=== PATIENT | female | born 1955 | race Caucasian/White ===

== ENCOUNTER 2016-08-29 23:07 | Emergency (ER) | payer OTHER ==
[2016-08-30] MEDS ORDERED: Ondansetron INJ* 2 MG/ML VIAL IV ONE ×2 (01:29→06:32)
[2016-08-30] MEDS ORDERED: NS 0.9% 1000 ML* 1,000 ML IV ONE ×3 (01:29→08:15)
--- NOTE | 2016-08-30 01:32 | ED ---
Jordi Valencia Billy, scribed for Rell Nieves MD on 08/30/16 at 0132 . GI/ HPI - HPI Summary HPI Summary: Patient is a 60 y/o female coming to [facility] for evaluation of abdominal pain and increased ostomy output today. Pain severity 4/10. Patient also reports an episode of emesis today at 2100. Patient also describes generalized weakness. Nothing makes her symptoms better or worse. She states that she had extensive abdominal surgery approximately 6 weeks ago at [facility]. - History of Current Complaint Chief Complaint: EDAbdPain Time Seen by Provider: 08/30/16 01:25 Stated Complaint: VOMITING/DEHYRATION Hx Obtained From: Patient Onset/Duration: Started Hours Ago, Still Present Timing: Constant Severity: Moderate Current Severity: Moderate Pain Intensity: 4 Location of Pain: Diffuse Associated Signs and Symptoms: Positive: Weakness, Nausea, Vomiting, Other: - increased ostomy output - Allergy/Home Medications Allergies/Adverse Reactions: Allergies Allergy/AdvReac Type Severity Reaction Status Date / Time Bupropion [From Wellbutrin] Allergy Mild Palpitation Verified 08/29/16 23:16 s Morphine Allergy Vomiting Verified 08/29/16 23:16 Codeine AdvReac Intermediate GI Upset Verified 08/29/16 23:16 Mesalamine [From Pentasa] AdvReac Intermediate Nausea And Verified 08/29/16 23: 16 Vomiting PMH/Surg Hx/FS Hx/Imm Hx Endocrine/Hematology History: Denies: Hx Anticoagulant Therapy, Hx Diabetes, Hx Thyroid Disease Cardiovascular History: Reports: Hx Angina Denies: Hx Congestive Heart Failure, Hx Hypertension, Hx Pacemaker/ICD Respiratory History: Denies: Hx Asthma, Hx Chronic Obstructive Pulmonary Disease (COPD) GI History: Reports: Hx Gastroesophageal Reflux Disease, Hx Hiatal Hernia, Other GI Disorders - ULCERATIVE COLITIS 9 MO AGO Denies: Hx Ulcer History: Denies: Hx Renal Disease Musculoskeletal History: Reports: Hx Arthritis, Hx Back Problems, Hx Orthopedic Injury - Numerous HX of, Other Musculoskeletal History - rt knee replacement, arthritis, left middle finger missing Sensory History: Denies: Hx Contacts or Glasses, Hx Hearing Aid Opthamlomology History: Denies: Hx Contacts or Glasses Neurological History: Reports: Other Neuro Impairments/Disorders - 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 Denies: Hx Dementia, Hx Seizures Psychiatric History: Reports: Hx Anxiety, Hx Depression, Hx Community Mental Health Tx, Hx Bipolar Disorder Denies: Hx Attention Deficit Hyperactivity Disorder, Hx Eating Disorder, Hx Panic Disorder, Hx Post Traumatic Stress Disorder, Hx Inpatient Treatment, Hx Schizophrenia, Hx Suicide Attempt, Hx of Violent Episodes Against Others, Hx Substance Abuse, Other Psychiatric Issues/Disorders - Cancer History Cancer Type, Location and Year: Melanoma in situ left arm removed Hx Chemotherapy: No Hx Radiation Therapy: No - Surgical History Surgery Procedure, Year, and Place: RIGHT KNEE, HYSTERECTOMY, LEFT ARM CANCER WITH RESECTION, LEFT middle FINGER REMOVED, Left Knee replacement Hx Anesthesia Reactions: Yes - PT GETS EXTREMELY ILL FROM GENERAL ANESTHESIA. N/ V AND HEADACHE FOR DAYS! Infectious Disease History: Yes Infectious Disease History: Denies: Hx Clostridium Difficile, Hx Hepatitis, Hx Human Immunodeficiency Virus (HIV), Hx of Known/Suspected MRSA, Hx Shingles, Hx Tuberculosis, Hx Known/ Suspected VRE, Hx Known/Suspected VRSA, History Other Infectious Disease, Traveled Outside the in Last 30 Days - Family History Known Family History: Positive: Unknown - Patient is adopted. - Social History Alcohol Use: Rare Alcohol Amount: 2 BEERS DAILY Substance Use Type: Reports: None Smoking Status (MU): Never Smoked Tobacco Have You Smoked in the Last Year: No Review of Systems Positive: Abdominal Pain, Vomiting, Nausea Positive: Weakness All Other Systems Reviewed And Are Negative: Yes Physical Exam Triage Information Reviewed: Yes Vital Signs On Initial Exam: Initial Vitals Temp Pulse Resp BP Pulse Ox 97.7 F 97 18 142/84 99 08/29/16 23:12 08/29/16 23:12 08/29/16 23:12 08/29/16 23:12 08/29/16 23:12 Vital Signs Reviewed: Yes Appearance: Positive: Ill-Appearing, Pain Distress - moderate discomfort Skin: Positive: Warm Head/Face: Positive: Normal Head/Face Inspection Eyes: Positive: PANTERA ENT: Positive: Hearing grossly normal Neck: Positive: Supple Respiratory/Lung Sounds: Positive: Clear to Auscultation, Breath Sounds Present Cardiovascular: Positive: RRR Abdomen Description: Positive: Soft, Distended, Guarding, Other: - mod diffuse abd tenderness Bowel Sounds: Positive: Hypoactive Musculoskeletal: Positive: Strength/ROM Intact Neurological: Positive: Sensory/Motor Intact, Alert, Oriented to Person Place, Time Psychiatric: Positive: Anxious Diagnostics - Vital Signs Vital Signs Temp Pulse Resp BP Pulse Ox 08/29/16 23:12 97.7 F 97 18 142/84 99 - Laboratory Result Diagrams: 08/30/16 01:10 08/30/16 01:10 Lab Statement: Any lab studies that have been ordered have been reviewed, and results considered in the medical decision making process. - CT abd/pel w CT Interpretation Completed By: Radiologist - see EMR Re-Evaluation - Re-Evaluation First Eval Re-Evaluation Time: 05:10 Comment: Case d/w Dr Vincent, felt pt better served at [facility] where all her treatment has been. Discussed plan for transfer to [facility]. GIGU Course/Dx - Diagnoses Provider Diagnoses: Abdominal abscess - Physician Notifications Discussed Care Of Patient With: Dr. Vincent (surgery) @ 0450: recommends transfer to [facility]. Dr. Dinh ([facility] surgery) @ 0456: accepts transfer. Instructed by Provider To: Transfer Reason For Transfer: Specialist unable to manage this patient. - Complicated post-operative abdominal abscess - Critical Care Time Critical Care Time: 30-74 min Discharge - Discharge Plan Condition: Fair Disposition: TRANS HIGHER LVL OF CARE FAC Referrals: Idalmis De Luna MD [Primary Care Provider] - The documentation as recorded by the Jordi levin Billy accurately reflects the service I personally performed and the decisions made by , Rell Nieves MD.
[2016-08-30] MEDS: HYDROmorphone* 1 MG/ML 1 ML SYR IV ONE ×2 (01:37→05:19)
[2016-08-30 01:38] LABS: Hematocrit 38 % (35-47); Mean Corpuscular HGB Conc 32 g/dl (31-36); Mean Corpuscular Hemoglobin 25 pg (27-31); Mean Corpuscular Volume 77 fL (80-97); Mean Platelet Volume 7 um3 (7.4-10.4); Red Blood Count 4.91 10^6/ul (4.0-5.4); Red Cell Distribution Width 17 % (10.5-15); White Blood Count 14.1 10^3/ul (3.5-10.8)
[2016-08-30] MEDS ORDERED: Ketorolac INJ* 30 MG/ML 1 ML VIAL ONE (01:46)
[2016-08-30] MEDS ORDERED: Ketorolac INJ* 30 MG/ML 1 ML VIAL IV PUSH ONE (01:46)
[2016-08-30 01:50] LABS: Albumin 4.3 g/dL (3.2-5.2); C Reactive Protein 9.3 mg/L (< 5.00); Calcium 10.8 mg/dL (8.6-10.3); EGFR African American 53.4 (>60); EGFR Non-African American 41.5 (>60); Globulin 4.4 g/dL (2-4); Magnesium 1.9 mg/dL (1.9-2.7); Potassium 3.8 mmol/L (3.5-5.0); Total Bilirubin 0.6 mg/dL (0.2-1.0); Total Protein 8.7 g/dL (6.4-8.9)
[2016-08-30] MEDS ORDERED: Iodixanol* (CONTRAST) 320 MG/ML 100 ML SDV IV ONE (03:38)
[2016-08-30] MEDS ORDERED: Al Hydrox/Mg Hydrox/Simet LIQ* 30 ML UDC ONE (05:25)
[2016-08-30] MEDS ORDERED: Al Hydrox/Mg Hydrox/Simet LIQ* 30 ML UDC PO ONE (05:27)
[2016-08-30 08:03] VITALS: BP 134/96
[2016-08-30] MEDS ORDERED: LORazepam INJ* 2 MG/ML 1 ML VIAL IV PUSH ONE (08:14)
--- NOTE | 2016-08-30 11:24 | RAD ---
CLINICAL HISTORY: Abdominal pain and emesis. Relevant surgical history includes hysterectomy. COMPARISON: Most recent comparison CT is dated March 12, 2016 TECHNIQUE: Contrast enhanced CT examination of the abdomen and pelvis from the lung bases through the initial tuberosities. The patient received mL intravenously prior to imaging.The patient received oral contrast as well prior to imaging. FINDINGS: VISUALIZED LUNG BASES: The visualized lung bases are grossly clear. There is no pleural effusion. There is aneurysmal dilatation of the leonardo ascending aorta measuring up to 4.4 cm in the axial plane at the level of the right mainstem pulmonary artery. ABDOMEN AND PELVIS: The liver, spleen, pancreas and adrenal glands are grossly normal in appearance. The gallbladder is normal. The kidneys are normal in appearance without focal mass, calcification or signs of hydronephrosis. The oral contrast has progressed as far as the small bowel. Again seen is a right abdominal loop ileostomy. There is a mild degree of infiltration of the subcutaneous fat at the ostomy site. There is no evidence of bowel obstruction. There are surgical material at the rectum with the remaining colon filled with fluid. At the left of midline subcutaneous fat there is a fluid collection with an enhancing rim measuring 5.5 x 12.1 cm in the axial plane. In the right upper quadrant there is an area of increased attenuation of the peritoneal fat measuring 4.2 x 6.2 cm. This appears to be in the anterior pararenal space. There is no gross retroperitoneal or mesenteric lymphadenopathy. The uterus is surgically absent. The mildly calcified abdominal aorta and iliac arteries are normal in course and diameter. Degenerative changes include multilevel loss of intervertebral disc height, vacuum disc phenomenon and mild marginal osteophyte formation involving the lower thoracic and lumbar spine.There are no sinister bone lesions. IMPRESSION: 1. Rim-enhancing subcutaneous fluid collection measuring up to 5.5 x 12.1 cm overlying the left of midline abdominal wall most consistent with subcutaneous abscess. 2. There is mild infiltration of the subcutaneous fat at the loop ileostomy site but no signs of bowel obstruction. 3. Focal area of infiltration of the anterior pararenal space mesenteric fat which could represent infarction or focal inflammatory change. 4. Aneurysmal dilatation of the leonardo ascending aorta up to 4.4 cm and greatest axial dimension measured at the level of the right pulmonary artery. This appears similar to the March 31, 2013 CT of the chest. 5. Additional chronic, degenerative and iatrogenic findings as described in the body of the report.
== END 2016-08-30 08:34 | disposition short-term general hospital (02) ==
LOC: ED 23:07
DX: L02.211 Cutaneous abscess of abdominal wall (principal); R53.1 Weakness; R11.2 Nausea with vomiting, unspecified
CPT/HCPCS: 36415; 74177; 80053; 83605; 83690; 83735; 85025; 85610; 86140; 96374; 96375; 99283; A9270-GY; J1170; J1885; J2060; J2405; Q9967

== ENCOUNTER 2019-06-22 03:39 | Emergency (ER) | payer MEDICARE, MEDICAID ==
--- OUTSIDE RECORDS SUMMARY | 2019-06-22 04:30 | XMS REPORT | Continuity of Care Document ---
:1955 External Reference #:[id number] Author Name Ailyn Pedersen M.D. (transmitted by agent of provider Cristina Whaley) Address [address] [place] [address] [place] [address] Care Team Providers Name Role Phone Idalmis De Luna MD - Internal Care Team Information Chief Controller Medicine Problems Active Problems Provider Date Degenerative joint disease involving multiple Idalmis De Luna M.D. Onset: joints Depressive disorder Idalmis De Luna M.D. Onset: 05/25/2012 Note: anxiety Incisional hernia Onset: Note: small bowel loops through ileostomy Dr. Flores Chronic ulcerative proctitis Idalmis De Luna M.D. Onset: 07/25/2015 Parastomal hernia Onset: Arthroplasty of knee Ailyn Pedersen M.D. Onset: 09/06/2018 Localized superficial swelling of skin Ailyn Pedersen M.D. Onset: 10/22/2018 Other mechanical complication of internal Ailyn Pedersen M.D. Onset: 2019 right knee prosthesis, subsequent encounter Social History Type Date Description Comments Sex Unknown Tobacco Use Start: Unknown Never Smoked Cigarettes Smoking Status Reviewed: 06/10/19 Never Smoked Cigarettes ETOH Use Consumes 2 beers per day Tobacco Use Start: Unknown Patient has never smoked Recreational Drug Use Denies Drug Use Exercise Type/Frequency Exercises regularly kayaking /swimming Allergies, Adverse Reactions, Alerts Active Allergies Reaction Severity Comments Date Codeine Nausea and Vomiting 05/25/2012 Morphine vomitting 06/08/2014 Medications Active Medications SIG Qnty Indications Ordering Date Provider Diflucan Take 1 tab by mouth 1tabs Idalmis De Luna, 05/10/2019 150mg once M.D. Tablets Meloxicam take 1 tab by mouth 14tabs Ailyn Pedersen, 11/29/2018 15mg with food once a day M.D. Tablets Fluoxetine HCL Take Two Capsules By 60caps Idalmis De Luna, 10/26/2018 40mg Mouth Every Day M.D. Capsules Pantoprazole Sodium take one tablet by 60tabs K21.9 Idalmis De Luna, 2017 mouth once daily M.D. 20mg Tablets DR Trejo intramuscular x 1 1units Idalmis De Luna, 01/05/2018 50mcg then repeat in 4 M.D. Suspension Rec months Temazepam take one capsule by 30caps Idalmis De Luna, 02/14/2015 15mg mouth as needed for M.D. Capsules sleep, maximum daily dose of 1 Ultracet take one to two 90tabs Idalmis De Luna, 04/06/2013 37.5-325mg tablets by mouth M.D. Tablets three times a day as needed for pain maximum daily dose of 3 tablets Tumeric Unknown Loperamide HCL take two capsules by 180caps Idalmis De Luna, 2mg mouth every 8 hours M.D. Capsules as needed Biotin 1 by mouth every day Unknown 2500mcg Capsules Multi Complete daily Unknown Capsules Vitamin D-3 1 by mouth every day Unknown 1000Unit Capsules Vitamin B Complex-C Unknown Capsules Fish Oil 1 by mouth every day Unknown 1000mg Capsules History Medications Diflucan Take 1 tab by 1tabs Ayaka Woo, 04/22/2019 - 150mg mouth once MD 04/23/2019 Tablets Doxycycline Hyclate 1 tablet twice 28tabs Idalmis De Luna, 04/12/2019 - a day x 14 days M.D. 04/22/2019 100mg Tablets Cephalexin three times a 15caps L03.116 Amie Bartlett, 02/24/2019 - 500mg day for 5 days M.D. 03/02/2019 Capsules Immunizations CPT Code Status Date Vaccine Lot # [id number] Given 04/06/2019 Influenza Virus Vaccine, Quadrivalent ([id number]), [id number] Derived From Cell 55350 Given 04/06/2019 Pneumococcal Conjugate Vaccine 13 Valent For [id number] Intramuscular Use 93534 Given 02/24/2019 Tetanus And Diptheria (Td) For Adult Use [id number] Preservative Free 04149 Given 05/13/2016 Influ Virus Vaccine, Quadrivalent, Split Virus, [place] [id number] [address] Given 05/07/2015 Influenza Virus Vaccine, Quadrivalent, Split, [id number] Preservative Free 07086 Given 04/06/2013 Flu Vaccine Split Virus Preservative Free For [id number] Indiv 3Yr Older Q2037 Given 04/27/2012 Fluvirin Im 3Yrs And Older [id number] 81123 Given 04/27/2012 Influenza Virus 3Yrs & Over 16657 Given 07/05/2010 Tdap - Tetanus/Diptheria/Acellular Pertussis Vital Signs Date Vital Result Comment 06/10/2019 1:27pm Height 61 inches 5'1" Weight 206.00 lb Heart Rate 77 /min BP Systolic 140 mmHg BP Diastolic 88 mmHg Respiratory Rate 18 /min Pain Level 6 BMI (Body Mass Index) 38.9 kg/m2 04/06/2019 2:13pm Height 61 inches 5'1" Weight 209.00 lb Heart Rate 73 /min BP Systolic Sitting 130 mmHg BP Diastolic Sitting 87 mmHg Body Temperature 97.5 F Pain Level 5 O2 % BldC Oximetry 100 % BMI (Body Mass Index) 39.5 kg/m2 Results Test Acquired Date Facility Test Result H/L Range Note Comp Metabolic 04/14/2019 [facility] Sodium 132 mmol/L Low 135 -145 Panel [address] [place] [address] [phone] Potassium 3.9 mmol/L Normal 3.5-5.0 Chloride 98 mmol/L Low 101-111 Co2 Carbon Dioxide 28 mmol/L Normal 22-32 Anion Gap 6 mmol/L Normal 2-11 Glucose 81 mg/dL Normal 70-100 Blood Urea Nitrogen 10 mg/dL Normal 6-24 Creatinine 0.62 mg/dL Normal 0.51-0.95 BUN/Creatinine Ratio 16.1 Normal 8-20 Calcium 9.5 mg/dL Normal 8.6-10.3 Total Protein 6.6 g/dL Normal 6.4-8.9 Albumin 4.3 g/dL Normal 3.2-5.2 Globulin 2.3 g/dL Normal 2-4 Albumin/Globulin Ratio 1.9 Normal 1-3 Total Bilirubin 0.80 mg/dL Normal 0.2-1.0 Alkaline Phosphatase 67 U/L Normal 34-104 Alt 18 U/L Normal 7-52 Ast 23 U/L Normal 13-39 Egfr Non- 96.6 >60 Egfr 116.9 >60 1 CBC Auto 04/14/2019 [facility] White Blood 6.0 10^3/uL Normal 3.5-10.[address] [place] [address] [phone] Red Blood Count 4.39 10^6/uL Normal 3.70-4.87 Hemoglobin 15.1 g/dL Normal 12.0-16.0 Hematocrit 43 % Normal 35-47 Mean Corpuscular Volume 98 fL High 80-97 Mean Corpuscular Hemoglobin 34 pg High 27-31 Mean Corpuscular HGB Conc 35 g/dL Normal 31-36 Red Cell Distribution Width 12 % Normal 10-15 Platelet Count 275 10^3/uL Normal 150-450 Mean Platelet Volume 8.0 fL Normal 7.4-10.4 Abs Neutrophils 3.4 10^3/uL Normal 1.5-7.7 Abs Lymphocytes 1.7 10^3/uL Normal 1.0-4.8 Abs Monocytes 0.6 10^3/uL Normal 0-0.8 Abs Eosinophils 0.1 10^3/uL Normal 0-0.6 Abs Basophils 0.0 10^3/uL Normal 0-0.2 Abs Nucleated RBC 0.0 10^3/uL Granulocyte % 57.9 % Lymphocyte % 29.3 % Monocyte % 9.7 % Eosinophil % 2.3 % Basophil % 0.8 % Nucleated Red Blood Cells % 0.0 1 Because ethnic data is not always readily available, this report includes an eGFR for both -Americans and non- Americans. The National Kidney Disease Education Program (NKDEP) does not endorse the use of the MDRD equation for patients that are not between the ages of 18 and 70, are , have extremes of body size, muscle mass, or nutritional status, or are non- or non-. According to the National Kidney Foundation, irrespective of diagnosis, the stage of the disease is based on the level of kidney function: Stage Description GFR(mL/min/1.73 m(2)) 1 Kidney damage with normal or decreased GFR 90 2 Kidney damage with mild decrease in GFR 60-89 3 Moderate decrease in GFR 30-59 4 Severe decrease in GFR 15-29 5 Kidney failure <15 (or dialysis) Procedures Date Code Description Status 07/20/2017 62620842 Mammogram Completed 06/11/2016 [id number] Bone Mineral Density Test Completed 06/11/2016 [id number] Mammogram Completed 08/09/2015 [id number] Colonoscopy Completed 05/01/2014 [id number] Mammogram Completed 03/15/2014 [id number] Colonoscopy Completed 03/23/2013 [id number] Mammogram Completed 09/30/2012 [id number] Colonoscopy Completed 05/20/2012 [id number] Colonoscopy Completed 06/08/2000 [id number] Colonoscopy Completed Medical Devices Description No Information Available Encounters Type Date Location Provider Dx Diagnosis Office Visit 04/06/2019 [facility] Internal Idalmis De Luna, Z00.00 Encntr for general 2:00p Medicine - Anurag Sharma adult medical exam w/o abnormal findings D50.9 Iron deficiency anemia, unspecified F32.89 Other specified depressive episodes Z23 Encounter for immunization Office Visit 02/24/2019 11:40a [facility] Internal Amie L03.116 Cellulitis of Medicine Tennille Bartlett M.D. left lower limb Ccmob T63.441A Toxic effect of venom of bees, accidental, init Office Visit 12/17/2018 3:00p [facility] Ailyn Pedersen, M25.461 Effusion, right [place] knee M25.561 Pain in right knee Z96.651 Presence of right artificial knee joint Assessments Date Code Description Provider 06/10/2019 M25.561 Pain in right knee Ailyn Pedersen M.D. 06/10/2019 M25.461 Effusion, right knee Ailyn Pedersen M.D. 06/10/2019 Z96.651 Presence of right artificial knee joint Ailyn Pedersen M.D. 06/10/2019 T84.092D Other mechanical complication of faisal Pedersen M.D. right knee prosthesis, subsequent encounter 04/06/2019 Z00.00 Encounter for general adult medical Idalmis De Luna M.D. examination without abnormal findings 04/06/2019 D50.9 Iron deficiency anemia, unspecified Idalmis De Luna M.D. 04/06/2019 F32.89 Other specified depressive episodes Idalmis De Luna M.D. 04/06/2019 Z23 Encounter for immunization Idalmis De Luna M.D. 02/24/2019 L03.116 Cellulitis of left lower limb Amie Bartlett M.D. 02/24/2019 T63.441A Toxic effect of venom of bees, accidental Amie Bartlett M.D. (unintentional), initial encounter 12/17/2018 M25.461 Effusion, right knee Ailyn Pedersen M.D. 12/17/2018 M25.561 Pain in right knee Ailyn Pedersen M.D. 12/17/2018 Z96.651 Presence of right artificial knee joint Ailyn Pedersen M.D. Plan of Treatment 06/10/2019 - Ailyn Pedersen M.D.M25.561 Pain in right kneeFollow up:Follow up: spgcifO89.461 Effusion, right kneeZ96.651 Presence of right artificial knee cimtrY09.092D Other mechanical complication of internal right knee prosthesis, subsequent encounterReferral:Kwame Recinos MD, Surgery,Orthopedic Functional Status Description No Information Available Mental Status Description No Information Available Referrals Refer to Dr Reason for Referral Status Appt Date Kwame Recinos MD eval for rtka revision Created [address] [place] [id number] [phone]
--- NOTE | 2019-06-22 05:13 | ED ---
Complex/Multi-Sys Presentation - HPI Summary HPI Summary: 63 year old female presents to the ED with a chief complaint of gross left sided pain, especially around her back and neck, secondary to falling off of the 6th rung of a ladder yesterday afternoon. She reports bruising and difficulty moving. Patient has been using a walker to ambulate since the fall. She has difficulty lifting her legs due to pain in her hips. Moving causes pain in her ribs. Was unable to sleep because pain while lying down is too severe. Patient denies headache, syncope, and vomiting. No heart disease, lung disease, CAD, HLD. Patient has ulcerative colitis and cancer. She is not on blood thinners. Medications reviewed. Allergies noted. - History Of Current Complaint Chief Complaint: EDFall Hx Obtained From: Patient Onset/Duration: Sudden Onset, Still Present Timing: Constant Severity Currently: Moderate Severity Initially: Moderate Location: Pain At: - Left side grossly Associated Signs And Symptoms: Positive: Back Pain. Negative: Headache - Allergies/Home Medications Allergies/Adverse Reactions: Allergies Allergy/AdvReac Type Severity Reaction Status Date / Time bupropion [From Wellbutrin] Allergy Mild Palpitation Verified 06/22/19 03:47 s codeine Allergy GI Upset Verified 06/22/19 03:47 mesalamine Allergy Nausea And Verified 06/22/19 03:47 Vomiting morphine Allergy Vomiting Verified 06/22/19 03:47 PMH/Surg Hx/FS Hx/Imm Hx Endocrine/Hematology History: Denies: Hx Anticoagulant Therapy, Hx Diabetes, Hx Thyroid Disease Cardiovascular History: Reports: Hx Angina Denies: Hx Congestive Heart Failure, Hx Hypertension, Hx Pacemaker/ICD Respiratory History: Denies: Hx Asthma, Hx Chronic Obstructive Pulmonary Disease (COPD) GI History: Reports: Hx Gastroesophageal Reflux Disease, Hx Hiatal Hernia, Other GI Disorders - ULCERATIVE COLITIS 9 MO AGO Denies: Hx Ulcer History: Denies: Hx Dialysis, Hx Renal Disease Musculoskeletal History: Reports: Hx Arthritis, Hx Back Problems, Hx Orthopedic Injury - Numerous HX of, Other Musculoskeletal History - rt knee replacement, arthritis, left middle finger missing Sensory History: Denies: Hx Contacts or Glasses, Hx Hearing Aid Opthamlomology History: Denies: Hx Contacts or Glasses Neurological History: Reports: Other Neuro Impairments/Disorders - 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 Denies: Hx Dementia, Hx Seizures Psychiatric History: Reports: Hx Anxiety, Hx Depression, Hx Community Mental Health Tx, Hx Bipolar Disorder Denies: Hx Attention Deficit Hyperactivity Disorder, Hx Eating Disorder, Hx Panic Disorder, Hx Post Traumatic Stress Disorder, Hx Inpatient Treatment, Hx Schizophrenia, Hx Suicide Attempt, Hx of Violent Episodes Against Others, Hx Substance Abuse, Other Psychiatric Issues/Disorders - Cancer History Cancer Type, 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 had a j pouch surgery 2YRS AGO AND REVERSED Hx Anesthesia Reactions: Yes - PT GETS EXTREMELY ILL FROM GENERAL ANESTHESIA. N/ V AND HEADACHE FOR DAYS! Infectious Disease History: No Infectious Disease History: Denies: Hx Clostridium Difficile, Hx Hepatitis, Hx Human Immunodeficiency Virus (HIV), Hx of Known/Suspected MRSA, Hx Shingles, Hx Tuberculosis, Hx Known/ Suspected VRE, Hx Known/Suspected VRSA, History Other Infectious Disease, Traveled Outside the [place] in Last 30 Days - Family History Known Family History: Positive: Unknown - Patient is adopted. 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 arthritis melanoma in left arm Review of Systems - ROS Summary Review of Systems Summary: Home Medications Medication Instructions Recorded Confirmed Type FLUoxetine CAP* [Prozac CAP*] 80 mg PO DAILY 06/21/12 08/16/18 History Pantoprazole TAB (NF) [Protonix 20 mg PO DAILY 03/12/16 08/16/18 History TAB (NF)] Temazepam CAP* [Restoril CAP*] 15 mg PO BEDTIME PRN 03/12/16 08/16/18 History Diphenoxylate HCl/Atropine 1 tab PO DAILY PRN 09/26/16 08/16/18 History [Lomotil 2.5-0.025 mg Tablet] Loperamide CAP* [Imodium CAP*] 1 tab PO DAILY PRN 09/26/16 08/16/18 History Biotin 2,500 mcg PO DAILY 02/18/18 08/16/18 History Cholecalciferol TAB* [Vitamin D 1,000 unit PO DAILY 02/18/18 08/16/18 History TAB*] Ferrous Gluconate TAB* [Fergon 325 mg PO BID 02/18/18 08/16/18 History TAB*] Multivitamin [Multiple Vitamins] 1 tab PO DAILY 02/18/18 08/16/18 History [place]-3 Fatty Acids/Fish Oil [Fish 1 each PO DAILY 02/18/18 08/16/18 History Oil 1,000 mg Capsule] Tramadol HCl/Acetaminophen 1 tab PO TID PRN 02/18/18 08/16/18 History [Ultracet] Vitamin B Complex CAP* [B Complex 1 cap PO DAILY 02/18/18 08/16/18 History CAP*] Positive: Other - DIfficulty ambulating Positive: Arthralgia - Hip pain, Myalgia - Left sided Positive: Bruising All Other Systems Reviewed And Are Negative: Yes Physical Exam - Summary Physical Exam Summary: General: Well-developed, Well-nourished female. Mild discomfort at rest. HEENT: Normocephalic, Atraumatic. Eyes: Conjuctiva normal, PERRL. Ears: TMs within normal limits. Nares: (-) discharge, (-) erythema. Oropharynx: Clear, mucous membranes moist, (-) exudates. Neck: Soft, FROM, (-) lymphadenopathy, (-) thyromegaly, (-) JVD. Cardiovascular: Normal sinus rhythm, (-) murmur. Lungs: Equally decreased breath sounds bilaterally. (-) wheezes, (-) rales, (-) rhonchi. Abdomen: Soft, non-distended, (-) organomegaly, normal bowel sounds. Tenderness over left lower ribs. Back: (-) CVA tenderness Extremities: Trace edema bilaterally in lower extremities. Skin: Warm, dry, (-) rash. Ecchymosis on lateral left thigh. Neuro: Alert and oriented x3, no focal deficits. Psychiatric: Mood normal, affect normal. Triage Information Reviewed: Yes Vital Signs On Initial Exam: Initial Vitals Temp Pulse Resp BP Pulse Ox 98.5 F 74 18 130/94 99 06/22/19 03:41 06/22/19 03:41 06/22/19 03:41 06/22/19 03:41 06/22/19 03:41 Vital Signs Reviewed: Yes Procedures - Sedation Patient Received Moderate/Deep Sedation with Procedure: No Diagnostics - Vital Signs Vital Signs Temp Pulse Resp BP Pulse Ox 06/22/19 05:00 75 94 06/22/19 04:56 74 128/79 96 06/22/19 04:26 72 113/84 97 06/22/19 04:00 72 100 06/22/19 03:56 73 137/81 100 06/22/19 03:55 74 96 06/22/19 03:41 98.5 F 74 18 130/94 99 - Laboratory Result Diagrams: 06/22/19 05:37 06/22/19 05:37 Lab Statement: Any lab studies that have been ordered have been reviewed, and results considered in the medical decision making process. Re-Evaluation - Re-Evaluation First Eval Re-Evaluation Time: 08:05 Comment: Patient c/o pain, will order Toradol. Discussed results and discharge plan. Second Eval Re-Evaluation Time: 08:50 Change: Improved - given tramadol (takes at home). Ambulated w walker. Patient OK w going home, advised to return if worse. Complex Multi-Symp Course/Dx Course Of Treatment: 63-year-old female presents from home with left sided pain. Patient admits she fell from a ladder yesterday afternoon. Approximately 6 feet high. Denies loss of consciousness. Complains of left lateral lower rib pain and left hip pain. Pain worsens with deep breath. On physical exam patient has significant bruising on her left hip and thigh. Has significant tenderness on her left lateral lower ribs. No obvious deformity or step-off. CT scan pending. Patient signed out at change of shift. - Diagnoses Provider Diagnoses: Chest wall pain, Fall Discharge ED - Sign-Out/Discharge Documenting (check all that apply): Sign-Out Patient Signing out patient TO: Shikha Garcia - Patient is a signout at change of shifts at 0700 on 06/22/19, pending CT - Discharge Plan Condition: Stable Disposition: HOME Patient Education Materials: Chest Wall Pain (ED), Hip Pain (ED) Referrals: Idalmis De Luna MD [Primary Care Provider] - Additional Instructions: You have been seen in the Emergency Department for a traumatic injury. CT scans did not show any evidence of broken bones or abnormalities. Your CT scan showed gallstones. We have evaluated you and have determined that you are stable to go home and follow up outpatient. When people are injured, it is common to have pain reach the worst it will be up to 24-48 hours after the injury. This means you may hurt worse when you get home. We recommend taking acetaminophen (Tylenol) to help with pain or ibuprofen (Motrin) to help with pain and swelling. You can take 500mg tylenol every 8 hours or 600mg motrin every 8 hours. It is normal to take these medications every 8 hours as needed for several days. Please return to the emergency department for trouble breathing, chest pain, nausea, vomiting, abdominal pain, confusion, severe headaches, new weakness or numbness or if you are concerned. We think it is important that you call and schedule an appointment to see your primary care doctor. It was pleasure taking care of you today. - Billing Disposition and Condition Condition: STABLE Disposition: Home - Attestation Statements Document Initiated by Leandor: Yes Documenting Scribe: Akash Marroquin Provider For Whom Leandro is Documenting (Include Credential): Adriana Vizcarra MD Scribe Attestation: Akash Valencia, scribed for Adriana Vizcarra MD on 06/24/19 at 2021. Scribe Documentation Reviewed: Yes Provider Attestation: The documentation as recorded by the Akash levin accurately reflects the service I personally performed and the decisions made by , Adriana Vizcarra MD Status of Scribe Document: Viewed
[2019-06-22 05:42] LABS: ABS Basophils 0.1 10^3/ul (0-0.2); ABS Eosinophils 0.1 10^3/ul (0-0.6); ABS Lymphocytes 1.4 10^3/ul (1.0-4.8); ABS Monocytes 0.6 10^3/ul (0-0.8); ABS Neutrophils 4.3 10^3/ul (1.5-7.7); Eosinophil % 0.8 %; Hematocrit 40 % (35-47); Lymphocyte % 21.2 %; Mean Corpuscular HGB Conc 35 g/dL (31-36); Mean Corpuscular Hemoglobin 33 pg (27-31); Mean Corpuscular Volume 96 fL (80-97); Mean Platelet Volume 7.8 fL (7.4-10.4); Platelet Count 268 10^3/uL (150-450); Red Cell Distribution Width 12 % (10-15); White Blood Count 6.4 10^3/uL (3.5-10.8)
[2019-06-22 05:47] LABS: INR 0.98 (0.82-1.09)
[2019-06-22 05:58] LABS: Albumin 4.1 g/dL (3.2-5.2); Albumin/Globulin Ratio 1.6 (1-3); BUN/Creatinine Ratio 20.8 (8-20); Calcium 9.6 mg/dL (8.6-10.3); EGFR African American 140.1 (>60); EGFR Non-African American 115.8 (>60); Globulin 2.6 g/dL (2-4); Total Bilirubin 0.7 mg/dL (0.2-1.0); Total Protein 6.7 g/dL (6.4-8.9)
[2019-06-22 05:59] LABS: Urine Appearance Clear; Urine Bilirubin Negative (Negative); Urine Blood Negative (Negative); Urine Color Yellow; Urine Glucose Negative (Negative); Urine Ketones Trace (Negative); Urine Nitrite Negative (Negative); Urine Protein Negative (Negative); Urine Specific Gravity 1.009 (1.010-1.030); Urine Urobilinogen Negative (Negative)
[2019-06-22 06:00] LABS: Urine Bacteria Absent (Absent); Urine Red Blood Cell Trace(0-2/hpf) (Absent); Urine Squamous Epithelial Cell Present (Absent); Urine White Blood Cell 1+(6-10/hpf) (Absent)
[2019-06-22] MEDS ORDERED: Iohexol 300* (CONTRAST) 10 ML SDV IV ONE (06:12)
[2019-06-22] MEDS ORDERED: NS 0.9% 1000 ML** 1,000 ML IV ONE (07:04)
--- NOTE | 2019-06-22 07:06 | ED ---
Progress - Progress Note Progress Note: The patient is a sign-out from Dr. Adriana Vizcarra MD, to Dr. Shikha Garcia MD, at change of shift at 0700 on 06/22/19, pending Brain CT, C-Spine CT, Chest /Abd/Pel CT, and disposition. Brain CT is negative for intracranial pathology. C-Spine CT is negative for fracture or dislocation. Chest/Abd/Pel CT reveals linear atelectasis or fibrosis in the lingula and left lower lobe, right lower anterior abdominal wall hernia, and cholelithiasis. Patient given Toradol for pain. Patient safe for discharge. - Results/Orders Results/Orders: Brain CT Impression: No acute intracranial abnormality. ED physician has reviewed this report. Cervical Spine CT Impression: No evidence of acute cervical spine fracture or dislocation. ED physician has reviewed this report. Chest/Abdomen/Pelvis CT Impression: (Chest) Linear atelectasis or fibrosis in the lingula and left lower lobe. ED physician has reviewed this report. (Abd/Pel ) 1. Right lower anterior abdominal wall hernia which contains loops of small bowel. 2. Status post subtotal colectomy. 3. Cholelithiasis. 4. Hysterectomy. ED physician has reviewed this report. Re-Evaluation - Re-Evaluation First Eval Re-Evaluation Time: 08:05 Comment: Patient c/o pain, will order Toradol. Discussed results and discharge plan. Second Eval Re-Evaluation Time: 08:50 Change: Improved - given tramadol (takes at home). Ambulated w walker. Patient OK w going home, advised to return if worse. Course/Dx - Diagnoses Provider Diagnoses: Chest wall pain, Fall Discharge ED - Sign-Out/Discharge Documenting (check all that apply): Patient Departure - Patient will be discharged home., Receiving Sign-Out Receiving patient FROM: Adriana Vizcarra - Patient is a sign-out from Dr. Adriana Vizcarra MD, at change of shift at 0700 on 06/22/19, pending Brain CT, C-Spine CT , Chest/Abd/Pel CT, and disposition. - Discharge Plan Condition: Stable Disposition: HOME Patient Education Materials: Chest Wall Pain (ED), Hip Pain (ED) Referrals: Idalmis De Luna MD [Primary Care Provider] - Additional Instructions: You have been seen in the Emergency Department for a traumatic injury. CT scans did not show any evidence of broken bones or abnormalities. Your CT scan showed gallstones. We have evaluated you and have determined that you are stable to go home and follow up outpatient. When people are injured, it is common to have pain reach the worst it will be up to 24-48 hours after the injury. This means you may hurt worse when you get home. We recommend taking acetaminophen (Tylenol) to help with pain or ibuprofen (Motrin) to help with pain and swelling. You can take 500mg tylenol every 8 hours or 600mg motrin every 8 hours. It is normal to take these medications every 8 hours as needed for several days. Please return to the emergency department for trouble breathing, chest pain, nausea, vomiting, abdominal pain, confusion, severe headaches, new weakness or numbness or if you are concerned. We think it is important that you call and schedule an appointment to see your primary care doctor. It was pleasure taking care of you today. - Billing Disposition and Condition Condition: STABLE Disposition: Home - Attestation Statements Document Initiated by Leandro: Yes Documenting Scribe: Britney Valentine Provider For Whom Leandro is Documenting (Include Credential): Dr. Shikha Garcia MD Scribe Attestation: I, sarah Cordonibed for Dr. Shikha Garcia MD on 06/22/19 at 0853. Scribe Documentation Reviewed: Yes Provider Attestation: The documentation as recorded by the Britney levin accurately reflects the service I personally performed and the decisions made by me, Dr. Shikha Garcia MD Status of Scribe Document: Viewed Procedures - Sedation Patient Received Moderate/Deep Sedation with Procedure: No
[2019-06-22] MEDS ORDERED: Ketorolac INJ* 30 MG/ML 1 ML VIAL IV ONE (08:05)
[2019-06-22] MEDS ORDERED: traMADol TAB* 50 MG PO ONE (08:17)
[2019-06-22] MEDS ORDERED: Lidocaine PATCH 5%* 1 PATCH TRANSDERM SCH (09:00)
[2019-06-22 09:08] VITALS: BP 157/102
[2019-06-22] MEDS ORDERED: Lidocaine Patch REMOVE* 1 NOTE MISC SCH ×2 (21:00)
== END 2019-06-22 09:09 | disposition home or self-care (01) ==
LOC: ED 03:39
DX: R07.89 Other chest pain (principal); R07.81 Pleurodynia; W11.XXXA Fall on and from ladder, initial encounter; Y92.9 Unspecified place or not applicable; K21.9 Gastro-esophageal reflux disease without esophagitis; F41.9 Anxiety disorder, unspecified; F31.9 Bipolar disorder, unspecified; Z85.820 Personal history of malignant melanoma of skin; Z96.653 Presence of artificial knee joint, bilateral; Z90.710 Acquired absence of both cervix and uterus; Z79.899 Other long term (current) drug therapy
CPT/HCPCS: 36415; 70450; 71260; 72125; 74177; 80053; 81003; 81015; 83605; 85025; 85610; 87086; 96361; 96374; 99282; A9270-GY; J1885

== ENCOUNTER 2022-12-22 05:39 | Observation (INO) ==
[2022-12-22] MEDS ORDERED: Buffered Lidocaine 1% SYRIN 1 ml INTRADERM ONE (06:00)
[2022-12-22] MEDS ORDERED: Lactated Ringers 1000 ml BAG 1,000 ML IV SCH (06:00)
[2022-12-22] MEDS ORDERED: Scopolamine 1 mg/72hr PATCH TRANSDERM ONE (06:00)
[2022-12-22] MEDS ORDERED: ceFAZolin 2 GM PREMIX 2 GM/50 ML BAG ONE (06:07)
[2022-12-22] MEDS ORDERED: Ondansetron 4 mg VIAL 2 MG/ML 2 ml VIAL ONE ×2 (06:51→08:42)
[2022-12-22] MEDS ORDERED: Dexamethasone IV 4 MG/ML VIAL 1 ml VIAL ONE (06:51)
[2022-12-22] MEDS ORDERED: Lidocaine 2% PF 5 ML VIAL ONE (06:51)
[2022-12-22] MEDS ORDERED: Phenylephrine 40 mcg/mL 10mL (400mcg) SYRINGE ONE (06:51)
[2022-12-22] MEDS ORDERED: Propofol 10 MG/ML 20 ML BTL ONE (06:51)
[2022-12-22] MEDS ORDERED: Rocuronium 50 mg VIAL 10 mg/ml 5 ml VIAL (50 mg) ONE ×2 (06:52→08:43)
[2022-12-22] MEDS ORDERED: Midazolam 2 mg/2 ml VIAL 1 mg/ml 2 ml VIAL (2 mg) ONE ×3 (06:52→07:10)
[2022-12-22] MEDS ORDERED: fentaNYL 100 mcg/2 ml 50 MCG/ML VIAL ONE ×3 (06:52→11:11)
[2022-12-22] MEDS ORDERED: Scopolamine 1 mg/72hr PATCH ONE (06:52)
[2022-12-22 06:55] LABS: Rapid COVID-19 Molecular Undetected (Undetected)
[2022-12-22] MEDS ORDERED: Dexmedetomidine 200 mcg/2 ml 2 ml VIAL (200 mcg) ONE (07:05)
[2022-12-22] MEDS ORDERED: Bupivacaine 0.25% SDV PF 10 ML VIAL INJ ONE (07:06)
[2022-12-22] MEDS ORDERED: Bupivacaine 0.5% SDV PF 30ML VIAL ONE (07:06)
[2022-12-22] MEDS ORDERED: Vancomycin 1,000 MG VIAL ONE (08:25)
[2022-12-22] MEDS ORDERED: Phenylephrine IV 10 MG/ML 1 ml VIAL ONE (08:28)
[2022-12-22] MEDS ORDERED: fentaNYL 100 mcg/2 ml 50 MCG/ML VIAL IV PRN (10:31)
[2022-12-22] MEDS ORDERED: HYDROmorphone 1 MG/1 ML SYRINGE IV PRN (10:31)
[2022-12-22] MEDS ORDERED: Ondansetron 4 mg VIAL 2 MG/ML 2 ml VIAL IV PRN ×2 (10:31→11:24)
[2022-12-22] MEDS ORDERED: Naloxone 0.4 mg VIAL 0.4 mg/ml 1 ml VIAL IV PRN (10:31)
[2022-12-22] MEDS ORDERED: Ondansetron ODT 4 mg TAB 4 MG TAB PO PRN (11:24)
[2022-12-22] MEDS ORDERED: Magnesium Hydroxide LIQ 30 ML UDC PO PRN (11:24)
[2022-12-22] MEDS ORDERED: Lactulose 30 ml UDC PO PRN (11:24)
[2022-12-22] MEDS ORDERED: Cholecalciferol (VIT D3) 1,000 unit TAB PO SCH (12:00)
[2022-12-22] MEDS: Lactated Ringers 1000 ml BAG 1,000 ML IV SCH (14:01)
[2022-12-22] MEDS: ceFAZolin 1 GM ADVAN 1 GM in NS 0.9% 50 ML 50 ML IVPB SCH (15:54)
[2022-12-22] MEDS: Magnesium Hydroxide LIQ 30 ML UDC PO SCH (21:39)
[2022-12-23] MEDS: ceFAZolin 1 GM ADVAN 1 GM in NS 0.9% 50 ML 50 ML IVPB SCH ×2 (00:11→07:59)
[2022-12-23] MEDS: Lactated Ringers 1000 ml BAG 1,000 ML IV SCH (01:17)
[2022-12-23] MEDS ORDERED: HYDROcodone/ACETAMIN 5/325 mg TAB PO ONE (04:15)
[2022-12-23 06:29] LABS: Hemoglobin 11.1 g/dL (11.5-14.3); Mean Platelet Volume 7.8 fL (7.5-11.2); Platelet Count 258 10^3/uL (150-450)
[2022-12-23 06:51] LABS: Calcium 8.8 mg/dL (8.6-10.3); Creatinine, Serum 0.58 mg/dL (0.51-0.95); Potassium 3.7 mmol/L (3.5-5.0); eGFR CKD-EPI 97.9 (>60)
[2022-12-23] MEDS: Magnesium Hydroxide LIQ 30 ML UDC PO SCH (07:49)
[2022-12-23] MEDS ORDERED: Vitamin THERAPEUTIC TAB PO SCH (09:00)
[2022-12-23 10:02] VITALS: BP 124/81
[2022-12-23] MEDS ORDERED: HYDROcodone/ACETAMIN 5/325 mg TAB PO PRN (10:06)
== END 2022-12-23 14:05 | disposition home or self-care (01) ==
LOC: SSU 05:39 → OR 05:39
PROVIDERS: ADMIT Orthopaedic Surgery; ATTEND Orthopaedic Surgery